=== PATIENT | female | born 1975 | race Two or more races ===

== ENCOUNTER 2017-02-20 11:25 | Emergency (ER) | payer OTHER ==
[~2017-02-20] VITALS: Ht 175.3 cm; Wt 82.3 kg
[2017-02-20] MEDS ORDERED: SODIUM CHLORIDE FLUSH 10ML SYR IVF ONE (11:30)
[2017-02-20] MEDS ORDERED: SODIUM CHLORIDE 0.9% 1,000ML IVBOLUS ONE (11:30)
[2017-02-20] MEDS ORDERED: LORazepam 2 MG/ML, 1ML IVPush ONE (11:30)
[2017-02-20] MEDS ORDERED: LORazepam 2 MG/ML, 1ML ONE (11:50)
[2017-02-20 12:28] LABS: ASPARTATE AMINO TRANSFERASE 22 U/L (15-37); BLOOD UREA NITROGEN 6 mg/dL (7-18)
[2017-02-20 12:34] LABS: ACETAMINOPHEN < 2 mcg/mL (10-30)
[2017-02-20 12:50] LABS: IS PT STATUS REG ER OR PRE ER? YES
[2017-02-20] MEDS ORDERED: CEFTRIAXONE PMX 2GM/50ML 50 ML ONE (12:54)
[2017-02-20] MEDS ORDERED: NALOXONE 1 MG/ML, 2ML ONE (13:51)
[2017-02-20] MEDS ORDERED: NALOXONE 1 MG/ML, 2ML IM ONE (14:00)
[2017-02-20 14:46] VITALS: BP 139/97
== END 2017-02-20 14:52 | disposition home or self-care (01) ==
LOC: ED 14:40
DX: R55 Syncope and collapse (principal); E72.20 Disorder of urea cycle metabolism, unspecified; F17.200 Nicotine dependence, unspecified, uncomplicated
CPT/HCPCS: 36415; 70450; 71010; 80053; 80307; 80329; 82140; 84484; 85025; 93005; 96361; 96372; 96374; 99285; J2060; J2310; J7030; G0480